=== PATIENT | female | born 1975 | race Two or more races ===

== ENCOUNTER 2025-02-21 06:36 | Emergency (ER) | payer MEDICAID, SELFPAY ==
[2025-02-21 06:39] VITALS: BMI 32.8
[2025-02-21 06:43] VITALS: BP 117/69; PULSE 91; RESP 17; TEMP 36.8; O2SAT 98
--- NOTE | 2025-02-21 06:47 | EKG_ITS ---
[facility] Test Date: 2025-02-21 Pat Name: SHIELA LANDEROS Department: Room: - Gender: Female [employer]: : 1975 Requested By: Landy Ervin Order Number: [id number] Reading MD: Landy Ervin Measurements Intervals [place] Rate: 86 P: 38 [place]: 160 QRS: 28 QRSD: 105 T: 48 QT: 367 QTc: 441 Interpretive Statements SINUS RHYTHM POSSIBLE LEFT ATRIAL ENLARGEMENT [-0.1mV P-WAVE IN V1/V2] POSSIBLE RIGHT VENTRICULAR CONDUCTION DELAY [RSR (QR) IN V1/V2] No previous ECG available for comparison /store/S0/[id number].pdf
--- NOTE | 2025-02-21 06:47 | XR_ITS ---
Examination: PA lateral chest 2 views TECHNIQUE: Upright PA and lateral chest 2 views Date and time: February 21, 2025 0659 hours INDICATIONS: Tachycardia today. FINDINGS: Minimal prominence left ventricle Lungs are clear. Osseous structures are intact IMPRESSION: No active disease
--- NOTE | 2025-02-21 06:48 | EDRME_ITS ---
Rapid Medical Screening Exam RME Arrival date/time: 02/21/25 06:36 This is a 49-year-old female that comes in with complaints of palpitations. Patient states that her heart rates been running pretty fast.she reports that she feels like she has been running a marathon but she has not. Patient has a history of diabetes and high blood pressure. Patient states she recently moved from [place] and is currently trying to get a primary provider. She reports that she went to the clinic and they sent her to get labs done but they did not refill her medications. Patient reports nausea and vomiting. Patient denies diarrhea. I have greeted and performed a focused initial assessment of this patient. Initial appropriate labs ordered at this time. A comprehensive ED assessment and evaluation of the patient and analysis of all test and completion of medical decision making process will be conducted by additional ED provider. Chief Complaint: Arrhythmia/Palpitations Time Seen by Provider: 02/21/25 06:41 Vital signs: Vital Signs Temperature 98.2 F 02/21/25 06:43 Pulse Rate 91 02/21/25 06:43 Respiratory Rate 17 02/21/25 06:43 Blood Pressure 117/69 02/21/25 06:43 Pulse Oximetry (%) 98 02/21/25 06:43 Oxygen Delivery Method Room Air 02/21/25 06:43
[2025-02-21 07:25] LABS: Basophils % (Auto) 0 % (0-2.5); Eosinophils # (Auto) 0.1 Thou/mm3 (0.0-0.5); Eosinophils % (Auto) 1 % (0-10); Hematocrit 33.6 % (36.0-46.0); Hemoglobin 9.9 g/dL (12.0-16.0); Immature Granulocytes % (Auto) 0 % (0-0); Lymphocytes # (Auto) 2.2 Thou/mm3 (1.0-4.8); Lymphocytes % (Auto) 49 % (10-50); Mean Corpuscular HGB Conc 29.5 g/dl (31.0-37.0); Mean Corpuscular Hemoglobin 19.1 pg (25.0-35.0); Mean Corpuscular Volume 65 fL (80-100); Monocytes # (Auto) 0.5 Thou/mm3 (0.0-0.8); Monocytes % (Auto) 12 % (0-12); Neutrophils # (Auto) 1.7 Thou/mm3 (1.8-7.7); Neutrophils % (Auto) 38 % (37-80); Nucleated Red Blood Cell % 0 /100 WBC (0); Platelet Count 363 Thou/mm3 (140-440); RDW Standard Deviation 38.8 fL (36.4-46.3); Red Blood Count 5.18 Miln/mm3 (4.00-5.20); White Blood Count 4.5 Thou/mm3 (3.6-11.0)
[2025-02-21 07:48] LABS: B-Type Natriuretic Peptide 86 pg/mL (0-100)
[2025-02-21 07:50] LABS: Alanine Aminotransferase 27 U/L (10-49); Albumin, Serum 4.2 gm/dL (3.5-5.0); Albumin/Globulin Ratio 1.4 (1.2-2.2); Alkaline Phosphatase 116 U/L (46-116); Anion Gap 11 (7-16); Aspartate Amino Transferase 24 U/L (0-34); BUN/Creatinine Ratio 18 Ratio (12-20); Bilirubin,Total 0.6 mg/dL (0.3-1.2); Blood Urea Nitrogen 11 mg/dL (9-23); Calcium 8.9 mg/dL (8.3-10.6); Calcium (Corrected) 8.9 mg/dL (8.5-10.1); Carbon Dioxide 23.5 mMol/L (20.0-31.0); Chloride 103 mMol/L (98-107); Creatinine (Component) 0.6 mg/dL (0.6-1.3); Estimated Creatinine Clearance 110.1 mL/min (>60); Globulin 2.9 gm/dL (2.3-3.5); Glucose 292 mg/dL (74-106); Osmolality,Calculated 284 (275-295); Potassium 3.6 mMol/L (3.4-5.1); Sodium 137 mMol/L (136-145); Total Protein 7.1 gm/dL (5.7-8.2); Troponin I 0.034 ng/mL (0.0-0.045); eGFR > 60 See Note
[2025-02-21 11:13] VITALS: BP 113/70; PULSE 95; RESP 16; TEMP 36.6; O2SAT 98
--- NOTE | 2025-02-21 11:29 | PD.EDADULT ---
ED General RME/HPI General Chief complaint: Arrhythmia/Palpitations Stated complaint: PALPITATIONS,TIRED Time Seen by Provider: 02/21/25 06:41 Arrival date/time: 02/21/25 06:36 RME / HPI RME / HPI narrative: Patient is a 49-year-old female with past medical history of hypertension, mqk-ophwryj-moyeadzua diabetes on metformin, anxiety, depression currently in [place] due to depression presented to the ED with chief complaint of racing of heart noticed a month ago. Patient reported that she was feeling tired from last 1 month. She had worsening racing of heart/palpitations which brought her to the ER. Racing of heart is noticed more when she walks around. She also endorsed generalized associated with chest discomfort headaches and epigastric pain with burping. She rated her epigastric pain as 6/10 constant aching nature not related with food intake and had 2 episodes of vomiting without any blood mainly consisting of digested food particles. She also had some dizziness. She also reported to have some burning in her urine for last 2 months. She reports to have heat intolerance and dryness of the skin. She reported to have weight loss of 18 pounds in the last 1 month. She usually drinks 8 glasses of water every day. She feels anxious and has been in depression [employer] in last 1 month and originally from [facility]. She follows with with her primary care physician in [place]. PMH: As above PSH: Hysterectomy with oophorectomy FH: History of stomach cancer [mother], cardiomegaly [brother] SH: Quit smoking and drinking alcohol since 2014. Patient used to smoke a pack of cigarette every week and used to drink 1 bottle of whiskey every day. Quit methamphetamine from last 2 years. Allergies: Zofran causes hallucination, peanuts Home medications: Lisinopril 2.5 mg, metformin 500 mg twice daily atorvastatin 20 mg Vitals showed blood pressure 113/70, heart rate 95, respirate 16 and afebrile. She was saturating well on room air. Labs showed white count 4.5, normocytic microcytic anemia hemoglobin 9.9, platelet count 363. Chemistry panel was unremarkable. Kidney function was stable with BUN 11 and creatinine 0.6. Blood glucose was elevated at 292. Liver enzymes unremarkable. Troponin I is pending. BNP was unremarkable. Chest x-ray showed no active disease.EKG showed sinus rhythm with heart rate 86, QTc 441. No axis deviation. T wave inversion was only seen in lead V1. No acute ST-T changes. Heart score is 3. Therefore will repeat troponin I to evaluate for cardiac pathology and and patient was given diphenhydramine 25 mg p.o. x 1 for nausea.She was given glass of water to help with oral hydration as she appeared dehydrated. Differential diagnoses include sinus tachycardia related to anxiety, GERD,?Hyperthyroidism We will re-evaluate with next TRop I levels. 12:15 upon reevaluation, patient's troponin level down trended to 0.031. Patient most likely had anxiety contributing to tachycardia and rest of the symptoms. She was recommended to follow-up with her PCP as outpatient to get her medications for diabetes and hypertension. She can have workup for hyperthyroidism with thyroid functions as outpatient. Encouraged on oral hydration. She can take Tylenol as needed for headaches. Patient was stable at the time of discharge. MD complaint: Racing of heart Onset (ago): month(s) (1) Associated symptoms: chest pain, headaches, malaise, nausea/vomiting, shortness of breath and weakness Related Data Allergies Allergy/AdvReac Type Severity Reaction Status Date / Time ondansetron (From Zofran) Allergy Verified 02/21/25 06:38 peanut Allergy Verified 02/21/25 06:38 Review of Systems Review of Systems Systems Reviewed: All systems reviewed, normal except as documented Past Medical History Past Medical History CARDIAC: Positive Hypercholesterolemia and Hypertension ENDOCRINE: Positive Diabetes Mellitus Type 2 PSYCHO/SOCIAL: Positive Depression and Anxiety ED Exam Narrative Physical exam: GENERAL APPEARANCE: AxOx4, obese female in no acute distress. Saturating well on room air. HEENT: NC, AT. Dry mucous membrane. EOMI, clear conjunctiva, oropharynx clear. NECK: Supple without lymphadenopathy. No stiffness or restricted ROM. HEART: Sinus tachycardia with regular rhythm, normal S1/S2, no m/r/g LUNGS: CTAB, moving air well. No crackles or wheezes are heard. ABDOMEN: Soft, mild epigastric tenderness, nondistended with good bowel sounds heard. BACK: No CVAT, no obvious deformity. EXTREMITIES: Without cyanosis, clubbing or edema. NEUROLOGICAL: Grossly nonfocal. Alert and oriented, moving all 4 extremities. CN not formally tested but appear grossly intact. Observed to ambulate with normal gait. Skin: Warm and dry without any rash. Psych: Anxious however appropriate mood and affect Course Course Course Narrative: Patient is a 49-year-old female with past medical history of hypertension, fqm-zvimble-ygabvrxeg diabetes on metformin, anxiety, depression currently in [employer] due to depression presented to the ED with chief complaint of racing of heart noticed a month ago. Patient reported that she was feeling tired from last 1 month. She had worsening racing of heart/palpitations which brought her to the ER. Racing of heart is noticed more when she walks around. She also endorsed generalized associated with chest discomfort headaches and epigastric pain with burping. She rated her epigastric pain as 6/10 constant aching nature not related with food intake and had 2 episodes of vomiting without any blood mainly consisting of digested food particles. She also had some dizziness. She also reported to have some burning in her urine for last 2 months. She reports to have heat intolerance and dryness of the skin. She reported to have weight loss of 18 pounds in the last 1 month. She usually drinks 8 glasses of water every day. She feels anxious and has been in depression [employer] in last 1 month and originally from [facility]. She follows with with her primary care physician in [place]. Vitals showed blood pressure 113/70, heart rate 95, respirate 16 and afebrile. She was saturating well on room air. Labs showed white count 4.5, normocytic microcytic anemia hemoglobin 9.9, platelet count 363. Chemistry panel was unremarkable. Kidney function was stable with BUN 11 and creatinine 0.6. Blood glucose was elevated at 292. Liver enzymes unremarkable. Troponin I is pending. BNP was unremarkable. Chest x-ray showed no active disease.EKG showed sinus rhythm with heart rate 86, QTc 441. No axis deviation. T wave inversion was only seen in lead V1. No acute ST-T changes. Heart score is 3. Therefore will repeat troponin I to evaluate for cardiac pathology and and patient was given diphenhydramine 25 mg p.o. x 1 for nausea.She was given glass of water to help with oral hydration as she appeared dehydrated. Differential diagnoses include sinus tachycardia related to anxiety, GERD,?Hyperthyroidism We will re-evaluate with next TRop I levels. 12:15 upon reevaluation, patient's troponin level down trended to 0.031. Patient most likely had anxiety contributing to tachycardia and rest of the symptoms. She was recommended to follow-up with her PCP as outpatient to get her medications for diabetes and hypertension. She can have workup for hyperthyroidism with thyroid functions as outpatient. Encouraged on oral hydration. She can take Tylenol as needed for headaches. Patient was stable at the time of discharge. Quality Measures none Orders Category Date Time Status EKG (ED ONLY) *Do not use* NOW Care 02/21/25 06:47 Completed EKG (ED Only) Stat Exams 02/21/25 06:47 Draft XR chest 2V Stat Exams 02/21/25 06:47 Completed BNP [B-Type Natriuretic Peptide] Stat Lab 02/21/25 07:09 Completed CBC Stat Lab 02/21/25 07:09 Completed Comprehensive Metabolic Panel Stat Lab 02/21/25 07:09 Completed Troponin I Stat Lab 02/21/25 07:09 Completed Troponin I Stat Lab 02/21/25 11:31 Completed DiphenhydrAMINE [Benadryl] Med 02/21/25 11:26 Discontinued 25 mg PO X1 ONE Vital Signs Vital signs: Vital Signs Temperature 98.2 F 02/21/25 06:43 Pulse Rate 91 02/21/25 06:43 Respiratory Rate 17 02/21/25 06:43 Blood Pressure 117/69 02/21/25 06:43 Pulse Oximetry (%) 98 02/21/25 06:43 Oxygen Delivery Method Room Air 02/21/25 06:43 Discharge Plan Plan Patient Disposition: HOME (Self Care) Prescriptions/Referrals Referrals: No Primary/Family,Physician [Primary Care Provider] - In 1 week Problem List Clinical Impression: Anxiety, Palpitations Patient/Caregiver Discharge Instructions Other Activity Instructions:: Patient most likely had anxiety contributing to tachycardia and rest of the symptoms. Encouraged on oral hydration. She can take Tylenol as needed for headaches. She was recommended to follow-up with her PCP as outpatient to get her medications for diabetes and hypertension. She can have workup for hyperthyroidism with thyroid functions as outpatient. In case of worsening signs symptoms, patient was recommended to come back to the ED or call 911. Education Materials: Anxiety Disorders Tx Therapy Print Language: Luxembourgish Stand Alone Forms: Leanne Award Info., Patient Portal Info Letter MDM Narrative MDM hospital course (for use when minimal MDM required): Patient is a 49-year-old female with past medical history of hypertension, hmb-rukolte-scdiwxxnp diabetes on metformin, anxiety, depression currently in [employer] due to depression presented to the ED with chief complaint of racing of heart noticed a month ago. Patient reported that she was feeling tired from last 1 month. She had worsening racing of heart/palpitations which brought her to the ER. Racing of heart is noticed more when she walks around. She also endorsed generalized associated with chest discomfort headaches and epigastric pain with burping. She rated her epigastric pain as 6/10 constant aching nature not related with food intake and had 2 episodes of vomiting without any blood mainly consisting of digested food particles. She also had some dizziness. She also reported to have some burning in her urine for last 2 months. She reports to have heat intolerance and dryness of the skin. She reported to have weight loss of 18 pounds in the last 1 month. She usually drinks 8 glasses of water every day. She feels anxious and has been in depression [employer] in last 1 month and originally from [facility]. She follows with with her primary care physician in [place]. Vitals showed blood pressure 113/70, heart rate 95, respirate 16 and afebrile. She was saturating well on room air. Labs showed white count 4.5, normocytic microcytic anemia hemoglobin 9.9, platelet count 363. Chemistry panel was unremarkable. Kidney function was stable with BUN 11 and creatinine 0.6. Blood glucose was elevated at 292. Liver enzymes unremarkable. Troponin I is 0.034. BNP was unremarkable. Chest x-ray showed no active disease.EKG showed sinus rhythm with heart rate 86, QTc 441. No axis deviation. T wave inversion was only seen in lead V1. No acute ST-T changes. Heart score is 3. Therefore will repeat troponin I to evaluate for cardiac pathology and and patient was given diphenhydramine 25 mg p.o. x 1 for nausea.She was given glass of water to help with oral hydration as she appeared dehydrated. Differential diagnoses include sinus tachycardia related to anxiety, GERD,?Hyperthyroidism We will re-evaluate with next TRop I levels. 12:15 upon reevaluation, patient's troponin level down trended to 0.031. Patient most likely had anxiety contributing to tachycardia and rest of the symptoms. She was recommended to follow-up with her PCP as outpatient to get her medications for diabetes and hypertension. She can have workup for hyperthyroidism with thyroid functions as outpatient. Encouraged on oral hydration. She can take Tylenol as needed for headaches. Patient was stable at the time of discharge. EKG Interpretation EKG #1: EKG Interpretation: EKG showed sinus rhythm with heart rate 86, QTc 441. No axis deviation. T wave inversion was only seen in lead V1. No acute ST-T changes. Medication Administration(s) Medication Administration History Discontinued Medications Diphenhydramine HCl (Diphenhydramine 25 Mg Capsule) 25 mg PO X1 ONE Stop: 02/21/25 11:27 Diagnosis Differential Diagnosis ED Complaint MDM: sinus tachycardia related to anxiety, GERD,?Hyperthyroidism
[2025-02-21 11:56] LABS: Troponin I 0.031 ng/mL (0.0-0.045)
[2025-02-21] MEDS: DiphenhydrAMINE 25 MG CAPSULE PO (13:03)
[2025-02-21 13:05] VITALS: BP 114/60; PULSE 97; RESP 18; TEMP 36.8
[2025-02-21 13:07] VITALS: BP 114/60; PULSE 99; RESP 16; TEMP 36.8; O2SAT 97
[2025-02-21 13:11] LABS: Path Review Blood Smear Sent to Pathologist
== END 2025-02-21 13:07 | disposition home or self-care (01) ==
PROVIDERS: Nurse Practitioner Family; Student in an Organized Health Care Education/Training Program; Emergency Provider Emergency Medicine
DX: F41.9 Anxiety disorder, unspecified (principal); R00.2 Palpitations; E11.9 Type 2 diabetes mellitus without complications; I10 Essential (primary) hypertension; F32.A Depression, unspecified
CPT/HCPCS: 36415; 71046; 80053; 83880; 84484; 85025; 93005; 99283; A9270